=== PATIENT | female | born 1955 | race Caucasian/White ===

== ENCOUNTER → 2019-08-13 18:26 | Outpatient (BNVA) | payer MEDICAID, SELFPAY | PROVIDERS: Family Provider Family Medicine; Visit Provider Nurse Practitioner | DX: R39.9 Unspecified symptoms and signs involving the genitourinary system (principal); N30.01 Acute cystitis with hematuria | CPT/HCPCS: 81003 ==

== ENCOUNTER → 2019-11-11 18:00 | Outpatient (BNVA) | payer MEDICAID, SELFPAY | PROVIDERS: Family Provider Family Medicine; Visit Provider Nurse Practitioner Family | DX: M25.572 Pain in left ankle and joints of left foot (principal) | CPT/HCPCS: 73610 ==

== ENCOUNTER 2021-07-22 11:13 | Emergency (ER) | payer MEDICAID, SELFPAY ==
--- NOTE | 2021-07-22 11:37 | XR_ITS ---
WS: [id number] XR chest 1V portable [id number] REASON FOR EXAM: hypoxia FINDINGS: Mild tortuosity the thoracic aorta without aneurysmal dilatation. Normal heart size. Reticular interstitial opacities seen along the peripheral margin of the right lower lung. Similar fi ndings in the left lower lung as well as a more focal area with patchy density in the periphery of th e left midlung field. No significant abnormality of the bony thorax. XR/XR chest 1V portable [id number] IMPRESSION: There are no previous examinations for comparison. Findings are compatible with subacute pneumonitis. Appearance and distribution suggestive of Covid pneumoni tis.
[2021-07-22 11:48] VITALS: BP 98/57; PULSE 77; RESP 17; TEMP 37.3; O2SAT 100; BMI 21.2
--- NOTE | 2021-07-22 12:06 | W.ED.COVID ---
HPI - COVID General: Chief Complaint: COVID symptoms Stated Complaint: covid positive Time Seen by Provider: 07/22/21 11:36 Triage information: Has fever, cough or shortness of breath. Exposure to COVID + person last 14 days History of Present Illness: 66-year-old female presents emergency room with complaint of shortness of breath.Patient tested positive for Covid 4 days ago her symptoms started 8 days ago she has been mildly dyspneic. Still has low-grade fever a lot of fatigue some myalgias and cough. She was in the emergency room late last week and left because her family was upset about visitation policies for Covid positive patients. She went to her primary care doctor's office today he called ahead at she was brought in the reported's office where she was hypoxic with sats in the 60s and 70s. On arrival here she is complaining of feeling very weak and aching all over she is complaining of shortness of breath. On 2 L by nasal cannula oxygen sats are 98 to 100%. She did have some loose stools early on but that has resolved. MD complaint: known COVID positive Prior testing date: 07/18/21 COVID 19 common symptoms: positive fever(s), chills, cough, non-productive cough, dyspnea, fatigue, body aches, headache(s), throat pain, nasal congestion and diarrhea COVID 19 other sytmptoms: negative chest pain or requiring oxygen Onset (ago): day(s) Severity: mild Treatment prior to arrival: none COVID Results: No Data to Display Review of Systems Const: Reports: fever(s), chills, body aches and fatigue ENMT: Reports: throat pain and nasal congestion Card: Denies: chest pain, edema, dyspnea on exertion or orthopnea Resp: Reports: dyspnea and non-productive cough GI: Reports: diarrhea : Denies: flank pain, difficulty voiding, dysuria, urinary frequency or urinary urgency Skin/Breast: Denies: rash or pruritus Neuro: Reports: headache(s) PFS ED PFSH: Medical History (Updated 07/22/21 @ 13:35 by Michael Oliveira DO) COVID-19 Social History Smoking and tobacco status: never smoked Physical Exam Const: COMMON NORMALS: no acute distress GENERAL APPEARANCE: cooperative and comfortable ORIENTATION/CONSCIOUSNESS: Yes awake, Yes oriented to person, Yes oriented to place and Yes oriented to time HENMT: COMMON NORMALS: normocephalic, atraumatic, hearing grossly normal bilaterally, external ears normal, EAC's normal, TM's normal bilaterally, Normal nasal mucous membranes and turbinates present, moist oral mucous membranes and oropharynx normal HEAD & SCALP: normocephalic and atraumatic NOSE: Normal nasal mucous membranes and turbinates present EXTERNAL EAR: Yes external ears normal EXTERNAL AUDITORY CANAL: EAC's normal TYMPANIC MEMBRANE: TM's normal bilaterally Neck/C-Spine: COMMON NORMALS: no JVD Resp: AUSCULTATION: crackles and wheezes Cardio: COMMON NORMALS: no JVD, regular rate, regular rhythm and No murmurs present (Cardio) RATE: regular rate RHYTHM: regular rhythm GI: COMMON NORMALS: Soft to palpation and No hepatosplenomegaly present AUSCULTATION: Yes normoactive bowel sounds PALPATION: Yes Soft to palpation, No Tenderness to palpation present (GI), No Guarding due to palpation present (GI) and Yes No hepatosplenomegaly present Extremity: COMMON NORMALS: normal to inspection, capillary refill normal, no clubbing, cyanosis or edema, no calf tenderness and no pedal edema Neuro: SENSORIUM/ORIENTATION: Yes oriented to person, Yes oriented to place and Yes oriented to time Skin: COMMON NORMALS: no rashes or lesions noted GENERAL SKIN EXAM: no rashes or lesions noted Course Vital Signs: Vital signs: Vital Signs Temperature 99.1 F 07/22/21 11:48 Pulse Rate 80 07/22/21 14:14 Respiratory Rate 16 07/22/21 14:14 Blood Pressure 88/50 07/22/21 14:14 Pulse Oximetry 94 07/22/21 14:14 [facility] Medical Decision Making Patient not any acute not in any acute distress. We titrated off her oxygen she maintained her sats in her mid 90s without difficulty. He then had respiratory therapy, do a home oxygen eval and she maintains her sats with that as well she is still complaining of shortness of breath. After some discussion we have decided to go ahead and put her on oxygen and also started her on steroids. Discussed with her that in some cases even people pass her home oxygen evaluation with COVID we did put them on oxygen. I think at this point she can go home there is really not a lot that we would need to do that would require hospitalization. All of her labs and imaging reviewed and discussed with her. She is mildly hyponatremic but asymptomatic of this. Blood pressure initially was low and is improved. Encourage fluid intake. Medical Records I reviewed the patient's medical records. Lab Data I reviewed the patient's lab results. : 07/22/21 12:12 07/22/21 12:12 Radiology Impressions Chest X-Ray 07/22/21 11:37 IMPRESSION: There are no previous examinations for comparison. Findings are compatible with subacute pneumonitis. Appearance and distribution suggestive of Covid pneumonitis. Laboratory Results WBC 5.8 10^3/uL (4.0-10.0) 07/22/21 12:12 RBC 4.69 10^6/uL (4.1-5.3) 07/22/21 12:12 Hgb 13.8 g/dL (11.5-15.3) 07/22/21 12:12 Hct 41.7 % (37.0-47.0) 07/22/21 12:12 MCV 88.9 fl (81-99) 07/22/21 12:12 MCH 29.4 pg (28.0-34.0) 07/22/21 12:12 MCHC 33.1 g/dL (30.0-36.0) 07/22/21 12:12 RDW 13.2 % (12.1-15.1) 07/22/21 12:12 Plt Count 212 10^3/cmm (130-400) 07/22/21 12:12 MPV 10.2 fL (7.4-10.4) 07/22/21 12:12 Neut % (Auto) 74.4 % 07/22/21 12:12 Lymph % (Auto) 15.7 % 07/22/21 12:12 Scott % (Auto) 5.9 % 07/22/21 12:12 Eos % (Auto) 2.6 % 07/22/21 12:12 Baso % (Auto) 0.5 % 07/22/21 12:12 Neut # (Auto) 4.33 10^3/uL (1.8-7.7) 07/22/21 12:12 Lymph # (Auto) 0.9 10^3/uL (0.8-4.8) 07/22/21 12:12 Scott # (Auto) 0.3 10^3/uL (0.2-0.9) 07/22/21 12:12 Eos # (Auto) 0.2 10^3/uL (0.0-0.8) 07/22/21 12:12 Baso # (Auto) 0.0 10^3/uL (0.0-0.1) 07/22/21 12:12 Nucleated RBC % (auto) 0 % 07/22/21 12:12 Nucleated RBCs # 0.0 /100WBC 07/22/21 12:12 D-Dimer 0.83 ug/mIFEU (0-0.59) H 07/22/21 12:43 Specimen Type Arterial 07/22/21 12:09 Sample Site Radial, left 07/22/21 12:09 ABG pH 7.50 (7.35-7.45) H 07/22/21 12:09 ABG pCO2 32.0 mmHg (35-45) L 07/22/21 12:09 ABG pO2 141.0 mmHg (80.0-100.0) H 07/22/21 12:09 ABG HCO3 25.0 mmol/L (22-26) 07/22/21 12:09 ABG O2 Saturation 99.6 07/22/21 12:09 ABG Base Excess 2.4 mmol/L (-2.0-2.0) H 07/22/21 12:09 Javier Test Pos 07/22/21 12:09 A-a O2 Gradient 2.4 mmHg (5-10) L 07/22/21 12:09 Hematocrit 40.9 % (37-47) 07/22/21 12:09 Hgb O2 Saturation 98.6 % (95-100) 07/22/21 12:09 Carboxyhemoglobin 0.2 %THgb (0.4-20.1) L 07/22/21 12:09 Methemoglobin 0.9 % (0.4-1.5) 07/22/21 12:09 Total Hemoglobin 13.3 g/dL (12-16) 07/22/21 12:09 Sodium 126.0 mmol/L (131-143) L 07/22/21 12:09 Potassium 4.2 mmol/L (3.5-5.0) 07/22/21 12:09 Glucose 118.0 mg/dL (70-115) H 07/22/21 12:09 Ionized Calcium 1.1 mmol/L (1.1-1.4) 07/22/21 12:09 O2 Delivery Device Nc 07/22/21 12:09 O2 Liters/Min 2.0 % 07/22/21 12:09 FiO2 28.0 % 07/22/21 12:09 [employer] Project Manager ID Ed 07/22/21 12:09 Sodium 129 mmol/L (136-145) L 07/22/21 12:12 Potassium 4.4 mmol/L (3.5-5.1) 07/22/21 12:12 Chloride 93 mmol/L (98-107) L 07/22/21 12:12 Carbon Dioxide 25 mmol/L (22-29) 07/22/21 12:12 Anion Gap 15.4 (5-19) 07/22/21 12:12 BUN 9 mg/dL (8-23) 07/22/21 12:12 Creatinine 0.6 mg/dL (0.5-0.9) 07/22/21 12:12 GFR Calculation 100.6 mL/min (90-130) 07/22/21 12:12 Glucose 114 mg/dL (65-115) 07/22/21 12:12 Calculated Osmolality 268 mOsm/kg (285-295) L 07/22/21 12:12 Lactic Acid 0.6 mmol/L (0.5-2.2) 07/22/21 12:43 Calcium 7.9 mg/dL (8.5-10.5) L 07/22/21 12:12 Total Bilirubin 0.3 mg/dL (0.15-1.2) 07/22/21 12:12 AST 32 U/L (0-32) 07/22/21 12:12 ALT 18 U/L (0-33) 07/22/21 12:12 Alkaline Phosphatase 67 IU/L (35-105) 07/22/21 12:12 C-Reactive Protein 11.8 mg/L (0.0-4.9) H 07/22/21 12:12 Total Protein 6.6 g/dL (6.6-8.7) 07/22/21 12:12 Albumin 4.0 g/dL (3.5-5.2) 07/22/21 12:12 Globulin 2.6 g/dL (1.3-4.6) 07/22/21 12:12 Procalcitonin 0.06 ng/mL (0-0.5) 07/22/21 12:12 No Data to Display Discharge Plan Discharge Patient Disposition: Home Clinical Impression: COVID-19 Condition: Stable Prescriptions: New dexamethasone 6 mg tablet 6 mg PO DAILY Qty: 7 0RF No Action calcium carbonate [Calcium 600] 600 mg calcium (1,500 mg) tablet 600 mg PO DAILY 0RF Galzin 50 mg (zinc) capsule 50 mg PO DAILY 0RF Centrum Silver Women 8 mg iron-400 mcg-300 mcg tablet 1 tab PO DAILY 0RF cholecalciferol (vitamin D3) 50 mcg (2,000 unit) capsule 50 mcg PO DAILY 0RF ascorbate calcium (vitamin C) 500 mg tablet 500 mg PO DAILY 0RF guaifenesin [Mucinex] 600 mg tablet extended release 12hr 600 mg PO BID 0RF Discharge Orders: Discharge ED (Routine); Ordered 07/22/21 Ordered By: Michael Oliveira Other Ambulatory Orders: DME: Oxygen (Order) Location: None Selected Ordered By: Michael Oliveira Discharge Diet: Usual diet Activity Restrictions/Additional Instructions: Follow-up with your primary care doctor within the week Coding Level of Care Code ED Vice President Of Finance for Tessy Hubbard
[2021-07-22 12:08] VITALS: O2SAT 97
[2021-07-22 12:11] VITALS: BP 94/57; PULSE 83; RESP 18; O2SAT 98
[2021-07-22 12:18] LABS: Arterial Blood Gas Hematocrit 40.9 % (37-47); Base Excess ABG 2.4 mmol/L (-2.0-2.0); Blood Gas Allen Test Pos; Blood Gas Sample Type Arterial; Carboxyhemoglobin 0.2 %THgb (0.4-20.1); HGB O2 Sat 98.6 % (95-100); Ionized Calcium Level - ABG 1.1 mmol/L (1.1-1.4); Methemoglobin 0.9 % (0.4-1.5); Oxygen Saturation ABG 99.6; Potassium Level - ABG 4.2 mmol/L (3.5-5.0); Total Hemoglobin 13.3 g/dL (12-16)
[2021-07-22 12:22] LABS: Alveolar-Arterial Oxygen Gradi 2.4 mmHg (5-10); Blood Gas Operator Identificat ED; Blood Gas Sample Site Radial, left; Oxygen Device NC
[2021-07-22 12:32] LABS: Basophils % 0.5 %; Eosinophils # 0.2 10^3/uL (0.0-0.8); Eosinophils % 2.6 %; Hematocrit 41.7 % (37.0-47.0); Hemoglobin 13.8 g/dL (11.5-15.3); Lymphocytes # 0.9 10^3/uL (0.8-4.8); Lymphocytes % 15.7 %; Mean Corpuscular HGB Conc 33.1 g/dL (30.0-36.0); Mean Corpuscular Hemoglobin 29.4 pg (28.0-34.0); Mean Corpuscular Volume 88.9 fl (81-99); Mean Platelet Volume 10.2 fL (7.4-10.4); Monocytes # 0.3 10^3/uL (0.2-0.9); Monocytes % 5.9 %; Neutrophils # 4.33 10^3/uL (1.8-7.7); Neutrophils % 74.4 %; Nucleated Red Blood Cells % 0 %; Platelet Count 212 10^3/cmm (130-400); Red Blood Count 4.69 10^6/uL (4.1-5.3); Red Cell Distribution Width 13.2 % (12.1-15.1); White Blood Count 5.8 10^3/uL (4.0-10.0)
[2021-07-22 12:58] VITALS: O2SAT 93; O2SAT 97
[2021-07-22 13:07] LABS: Alanine Aminotransferase 18 U/L (0-33); Alkaline Phosphatase 67 IU/L (35-105); Anion Gap 15.4 (5-19); Aspartate Amino Transferase 32 U/L (0-32); Blood Urea Nitrogen 9 mg/dL (8-23); C Reactive Protein 11.8 mg/L (0.0-4.9); Calcium 7.9 mg/dL (8.5-10.5); Carbon Dioxide 25 mmol/L (22-29); Chloride 93 mmol/L (98-107); Globulin 2.6 g/dL (1.3-4.6); Glomerular Filtration Rate 100.6 mL/min (90-130); Glucose 114 mg/dL (65-115); Osmolality Calculated 268 mOsm/kg (285-295); Potassium 4.4 mmol/L (3.5-5.1); Sodium 129 mmol/L (136-145); Total Bilirubin 0.3 mg/dL (0.15-1.2); Total Protein 6.6 g/dL (6.6-8.7)
[2021-07-22 13:12] LABS: Procalcitonin 0.06 ng/mL (0-0.5)
[2021-07-22 13:13] LABS: D Dimer 0.83 ug/mIFEU (0-0.59)
[2021-07-22 13:21] LABS: Lactic Sepsis W/Reflex 0.6 mmol/L (0.5-2.2)
[2021-07-22 13:30] VITALS: BP 98/60; PULSE 72; RESP 16; O2SAT 100
[2021-07-22 14:14] VITALS: BP 88/50; PULSE 80; RESP 16; O2SAT 94
[2021-07-26 15:53] LABS: Bacillus cereus group Not Detected (NOT DETECT); Bacillus subtillis group Not Detected (NOT DETECT); Corynebacterium Not Detected (NOT DETECT); Cutibacterium acnes (P.acnes) Not Detected (NOT DETECT); Enterococcus Not Detected (NOT DETECT); Enterococcus faecalis Not Detected (NOT DETECT); Enterococcus faecium Not Detected (NOT DETECT); Lactobacillus species Not Detected (NOT DETECT); Listeria Not Detected (NOT DETECT); Listeria monocytogenes Not Detected (NOT DETECT); Micrococcus Not Detected (NOT DETECT); Pan Candida Not Detected (NOT DETECT); Pan Gram-Negative Not Detected (NOT DETECT); Staphylococcus epidermidis Detected (NOT DETECT); Staphylococcus lugdunensis Not Detected (NOT DETECT); Staphylococcus species Detected (NOT DETECT); Streptococcus agalactiae Not Detected (NOT DETECT); Streptococcus anginosus group Not Detected (NOT DETECT); Streptococcus pneumoniae Not Detected (NOT DETECT); Streptococcus pyogenes Not Detected (NOT DETECT); Streptococcus species Not Detected (NOT DETECT); mecA Not Detected (NOT DETECT); mecC Not Detected (NOT DETECT)
== END 2021-07-22 15:08 | disposition home or self-care (01) ==
PROVIDERS: Emergency Provider Family Medicine
DX: U07.1 COVID-19 (principal)
CPT/HCPCS: 36600; 71045; 80051; 80053; 82330; 82805; 83605; 84145; 85025; 85378; 86140; 87040; 87070; 87150; 87205; 99283

== ENCOUNTER → 2021-08-13 10:00 | Outpatient (BNVA) | payer MEDICAID, SELFPAY | PROVIDERS: Visit Provider Family Medicine | DX: U07.1 COVID-19 (principal) | CPT/HCPCS: 71046 ==